=== PATIENT | male | born 1995 | race Hispanic/Latino ===

== ENCOUNTER 2021-04-30 11:05 | Emergency (ER) | payer BC, SELFPAY ==
[2021-04-30 11:05] VITALS: BP 160/85; PULSE 88; RESP 16; TEMP 36.5; O2SAT 99; BMI 25.7
--- NOTE | 2021-04-30 11:30 | RAD_ITS ---
STUDY: X-RAY - LEFT HAND REASON FOR EXAM: Male, 25 years old. Pain following injury. TECHNIQUE: 3 view(s) of the hand. COMPARISON: None. FINDINGS: Normal radiocarpal articulation. Normal distal radioulnar joint. Normal visualized carpal bones. Normal carpal articulations Normal carpometacarpal articulation of the thumb. Normal second through fifth carpometacarpal joints. Normal metacarpi. Normal metacarpophalangeal joint of the thumb. Normal interphalangeal joint of the thumb. Normal proximal and distal phalanges of the thumb. Normal metacarpophalangeal joints of the second through fifth fingers. Normal proximal and distal interphalangeal joints of the second through fifth fingers. Normal phalanges of the second through fifth fingers. The soft tissue structures are unremarkable. RAD/Hand Min 3 Views IMPRESSION: Normal x-ray examination of the hand. Electronically Signed: Geovanni Gonzalez MD at 12:02 [facility] ,
--- NOTE | 2021-04-30 11:34 | EDS_ITS ---
HPI History of Present Illness Chief Complaint: Upper Extremity Injury Informant: patient Narrative Narrative: 25-year-old male presents to the emergency room with a left hand injury. He was at work somebody was using a drill to drill screw and he felt it enter the webspace between his long and ring finger of the left hand. Patient notes pain in this area. He notes there was minimal bleeding. He had a renal transplant couple years ago. Tetanus Immunization: <5 years [facility] Medical History (Updated 04/30/21 @ 11:[address] Alphonso Robbins DO) Personal history of immunocompromised state Home Medications cephalexin 500 mg PO Q6 #20 capsule 04/30/21 [Rx Last Taken Unknown] Surgical History (Updated 04/30/21 @ 11:[address] Alphonso Robbins DO) Renal transplant recipient Social History (Updated 04/30/21 @ 11:[address] Alphonso Robbins DO) current gender identity: male substance use type: does not use ROS ROS ED Constitutional Constitutional ED: Denies chills or weight loss Eyes Eyes: Denies change in vision or diplopia ENT ENT ED: Denies ear pain, rhinorrhea or sore throat Cardiovascular Cardiovascular: Denies chest pain, orthopnea, palpitations or racing heartbeat Respiratory/Chest Respiratory/Chest: Denies cough, dyspnea or orthopnea Gastrointestinal Gastrointestinal: Denies abdominal pain, diarrhea, nausea or vomiting Genitourinary Genitourinary ED: Denies dysuria, hematuria or urinary frequency Musculoskeletal Musculoskeletal: Reports other Details: See history of present illness ; Denies arthralgias or myalgias Integumentary Denies abscess or rash Neurologic Neurologic: Denies headache(s) or weakness Psychiatric Psychiatric: Denies anxiety, depression, suicidal ideation or suicidal thoughts Endocrine Endocrinology: Denies polydipsia, polyphagia or polyuria Allergic/Immunologic Allergic/Immunologic ED: Denies mouth swelling, tongue swelling or urticaria EXAM Physical Exam Const Vital Signs: 04/30/21 11:05 Temperature 97.7 F L Temperature Source Temporal Pulse Rate 88 Respiratory Rate 16 Blood Pressure 160/85 H Blood Pressure Mean 110 Pulse Ox 99 Oxygen Delivery Method Room Air Positive well nourished and well developed General Appearance ED: well developed HEENT Reports normocephalic, head/scalp atraumatic and moist mucous membranes normocephalic and atraumatic Eyes PERRL and EOMs intact bilaterally Neck no lymphadenopathy, supple and no JVD Resp normal respiratory effort and clear to auscultation bilaterally Cardio regular rate, regular rhythm and no murmurs GI normal to inspection, nondistended, normoactive bowel sounds and non-tender Palpation: soft Back/Spine no CVA tenderness and normal ROM Extremity Extremity Narrative: There is a superficial skin avulsion to the webspace between the middle and ring finger of the left hand. Neurovascularly he is intact. General Extremety ED: Negative for edema General Extremity: Negative for edema Neuro oriented x3 and CN's II-XII intact bilaterally Sensorium / Orientation: alert Motor Exam: strength 5/5 throughout Psych mental status grossly normal Mood & Affect: Negative for depressed or tearful Skin no rashes or lesions noted and no wounds MDM MDM MDM Narrative Medical decision making narrative: My interpretation of the plain films of the left hand is no acute fracture or foreign bodies noted. Wound will be dressed bacitracin ointment applied. I will start him on Keflex. He believes he is already on an antibiotic due to his renal transplant is not sure what it is. Discharge Plan Triage Chief Complaint: Upper Extremity Injury ED Provider: Alphonso Robbins Dx/Rx/DC Orders Clinical Impression: Avulsion of skin of hand Instructions: ED Skin Avulsion Prescriptions: New cephalexin [cephalexin] 500 MG capsule 500 mg PO Q6 Qty: 20 RF: 0 Primary Care Provider: NOT,DEFINED Referrals: NOT,DEFINED [Primary Care Provider] - Disposition Disposition: Home, Self Care
--- NOTE | 2021-04-30 12:26 | ED.RN ---
PT INITIALLY STATED HE COULD NOT REACH [employer] DESPITE MULTIPLE ATTEMPTS TO OBTAIN INFORMATION ON WHETHER DRUG TESTING WAS REQUIRED. THIS RN CALLED [employer] WHO STATES IF PT INSISTS ON FILING WORK[employer] COMP CLAIM HE WILL BE REQUIRED TO TAKE A DRUG TEST. [employer] FURTHER STATES HE TOLD PT COMPANY WOULD PAY FOR MEDICAL BILLS IF PT DOES NOT FILE CLAIM. [employer] STATES PT TOLD HIM HE WOULD NOT PASS A DRUG TEST. THIS RN SPOKE TO PT AGAIN WHO NOW STATES HE DOES NOT WANT [employer] INITIATED, THIS RN INFORMED PT HE WOULD THEN BE RESPONSIBLE FOR HIS MEDICAL BILLS. PT ACKNOWLEDGES, BUT ADAMANTLY STATES HE DOES NOT WANT TO FILE A WORKERS COMP CLAIM.
--- NOTE | 2021-04-30 12:43 | ED.RN ---
[facility]ITALStroho, [employer]PER[employer] [phone]
== END 2021-04-30 12:46 | disposition home or self-care (01) ==
PROVIDERS: Emergency Provider Emergency Medicine; Visit Provider Emergency Medicine
DX: S61.402A Unspecified open wound of left hand, initial encounter (principal); W29.8XXA Contact with other powered hand tools and household machinery, initial encounter; Y93.89 Activity, other specified; Y99.0 Civilian activity done for income or pay
CPT/HCPCS: 73130; 99283